=== PATIENT | female | born 1955 | race Caucasian/White ===

== ENCOUNTER 2024-11-03 11:07 | Outpatient (AMB) | payer OTHER, MEDICARE, SELFPAY ==
--- NOTE | 2024-11-03 11:38 | MHC.OFFVIS ---
Intake Visit Reasons: 6 month ADD Allergies No Known Allergies Allergy (Verified 09/23/24 12:36) Medication List - Last Reconciled 11/03/24 by Mikael Brush MD methylphenidate HCl 5 mg PO QAM 30 days HPI Comments Details: She is doing well in terms of focus and memory. Stress of her 43 yr son has been diagnosed with glioblastoma and had surgery and is on chemo and RT and has lost his vision on one side. He is using [employer] device which produces a TT Field. He is 4 yrs from surgery. Last scan is clear. Followed at [facility]. She says she has her brain back on Ritalin. Can concentrate and focus since starting Ritalin. 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 In July 2013, a garden pot fell from the ceiling when it's chain broke and hit her on her occipital region of the head and upper neck. She may have lost consciousness momentarily. She has no headache or neck pain. She is sleeping very well. Takes Ritalin 3 days a week. Occasionally loses her balance. 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 Doing pressure point therapy. MRI of the brain on 04/20/14 was normal. There are 2 tiny nonspecific white matter T2 and flair hyperintensities one in the right frontal and one in the left occipital region. [facility] Medical History (Updated 11/03/24 @ 11:41 by Mikael Brush MD) ADD (attention deficit disorder) Attention deficit Low back pain Post concussion syndrome Review of Systems Const Details: Sleep:? Difficulty getting to sleepdenies.? Difficulty maintaining sleepdenies?.? Urge to move legsdenies.? Teeth grindingdenies.? Shouting or Kicking during sleepdenies.? Abnormal behavior during sleepdenies.? Excessive sleepdenies.? Snoringdenies.? Daytime sleepinessdenies. ???General/Constitutional:? Change in appetitedenies.? Chillsdenies.? Fatiguedenies.? Feverdenies.? Weight gaindenies.? Weight lossdenies. ???Ophthalmologic:? Blurred visiondenies.? Diminished visual acuitydenies. ???ENT:? Stuffinessdenies.? Decreased hearingdenies.? Dry mouthdenies.? Ear paindenies.? Nosebleeddenies.? Ringing in the earsdenies.? Sinus paindenies.? Sore throatdenies.? Swollen glandsdenies. ???Endocrine:? Cold intolerancedenies.? Excessive thirstdenies.? Frequent urinationdenies.? Heat intolerancedenies. ???Respiratory:? Shortness of breathdenies.? Chest paindenies.? Coughdenies. ???Breast:? Breast lumpdenies.? Nipple dischargedenies. ???Cardiovascular:? Chest pain at restdenies.? Chest pain with exertiondenies.? Claudicationdenies.? Dizzinessdenies.? Fluid accumulation in the legsdenies.? Irregular heartbeatdenies.? Palpitationsdenies. ???Gastrointestinal:? Abdominal paindenies.? Constipationdenies.? Diarrheadenies.? Difficulty swallowingdenies.? Heartburndenies.? Nauseadenies.? Rectal bleedingdenies. ???Hematology:? Easy bruisingdenies.? Prolonged bleedingdenies. ???Genitourinary:? Frequent urinationdenies.? Urgencydenies.? Incontinencedenies.? Erectile Dysfunctiondenies. ???Musculoskeletal:? Neck paindenies.? Back painadmits.? Muscle achesdenies.? Painful jointsdenies.? Sciaticadenies.? Weaknessdenies. ???Podiatric:? Difficulty walkingdenies.? Foot numbnessdenies. ???Neurologic:? Difficulty swallowingdenies.? Balance difficultyadmits.? Coordinationnormal.? Difficulty speakingdenies.? Dizzinessdenies.? Faintingdenies.? Gait abnormalitydenies.? Headachedenies.? Loss of strengthdenies.? Loss of use of extremitydenies.? Low back painadmits.? Memory lossProblems with memory, confusion, focus and concentration problems..? Seizuresdenies.? Ticsdenies.? Tingling/Numbnessdenies.? Transient loss of visiondenies.? Tremordenies. ???Psychiatric:? Anxietydenies.? Auditory/visual hallucinationsdenies.? Delusionsdenies.? Depressed mooddenies.? Stressorsdenies.? Substance abusedenies.? Suicidal thoughtsdenies. Physical Exam Neuro Other: Neurological: Mental Status:??alert and oriented X 3,?Normal attention, orientation, memory and affect.?Cranial Nerves:??Pupils are equal, round and reactive to light. Fundoscopy shows normal disc bilaterally. External occular muscles are intact. Visual wyatt are full, no ptosis. Face is symmetrical, no facial weakness or droop. Facial sensations are normal. Tongue protrudes in midline. Palate elevates symmetrically. Shoulder shrugging is normal..?Motor Examination:??Normal muscle tone, bulk and strength,?No atrophy or fasciculations,?No drift of the extended upper extremities,?Deep tendon reflexes are 2+?,?Plantars are flexor?.?Straight Leg Raising:??90 degrees.?Sensory Exam:??Normal light touch, temperature, pinprick, vibration and joint-position sensations?,?Rhomberg sign is absent.?Coordination:??no ataxia,?no titubation,?[id number], [id number] test and rapid alternating movements were normal.?Gait Exam:??Within normal limits.?Cerebellar Signs:??[id number] and [id number] is normal,?no dysdiadochokinesia?.?Extrapyramidal System:??No tremor, rigidity with normal facial expressions,?No bradykinesia, no bradyphrenia. Normal arm swing and posture. No propulsion or retropulsion.?Speech:??Normal,?no dysphasia or dysarthria..? Mini Mental Status Exam: Level of Consciousness:??Alert.?Orientation:??Knows correct year, month, date, day and season,?Knows correct city, county and state. Knows correct location and floor.?Registration:??Able to register 3 objects.?Attention:??Serial 7's performed accurately.?Recall:??Able to recall 3 out of 3 objects.?Language:??Normal spontaneous speech, fluency, repetition,naming, comprehension, reading and writing.?Total Score:??.? Assessment & Plan Assessment & Plan (1) Attention deficit: Code(s): R41.840 - Attention and concentration deficit Category: Medical Plan Continue current meds Medications: Refilled methylphenidate HCl Partial Fill upon patient request. 5 mg PO QAM 30 tabs 0RF 30 days Coding Level of Care Code Est Pt Level 4 (58234) Diagnoses Attention deficit R41.84
--- OUTSIDE RECORDS SUMMARY | 2024-11-03 12:40 | XMS_ITS ---
Author Name [facility] Organization Unknown Care Team Organization Name Specialty Phone Email Start Date End Da te [facility] Anita [facility] 01/23/2022 4
--- OUTSIDE RECORDS SUMMARY | 2024-11-03 12:40 | XMS_ITS | Clinical Summary ---
Author Organization [address] Address [address] [facility] [place] [address] Phone Care Team Providers Care Rn Vascular Name Role Phone Anita Espinoza MD Primary Care Provider [phone] Allergies Active Allergy Reactions Criticality Noted Date Comments Adhesive Wound 10/09/2024 House Dust 04/20/2011 Sinus cheri- chronic Metronidazole Diarrhea,Headache,Na usea And Vomiting 02/06/2016 Medications turmeric root extract 500 mg capsule Take by mouth daily. Active omega-3 acid ethyl esters (LOVAZA) 1 gram capsule Take 2 Capsules by mouth daily. Active multivit-min/fol ic ac/collagen (WOMEN'S MULTIVITAMIN COLLAGEN ORAL) COLLAGEN OR Take by mouth. Active RED YEAST RICE EXTRACT ORAL RED YEAST RICE EXTRACT (RED YEAST RICE OR) Take by mouth. Active L. acidophilus/Bifi d. animalis (DAILY PROBIOTIC ORAL) Take by mouth. Activ e methylphenidate (RITALIN) 5 mg tablet Take 5 mg by mouth daily. Active calcium carbonate-vitami n D3 600 mg-5 mcg (200 unit) per tablet Take 1 Cap by mouth daily. Active bisacodyL (DULCOLAX) 5 mg EC tablet Take 2 tablets by mouth right before beginning bowel prep. See instructions provided by the office 2 tablet 5 Active polyethylene glycol (Golytely) 236-22.74-6.74 -5.86 gram solution Take 4L by mouth once for one dose. May substitue any PEG. Starting at 2PM the day before your procedure drink 1 8oz glasses at your own pace until you complete half of the gallon. Finish 2nd half of the gallon at 8PM. 4000 mL Active ascorbic acid/collagen hydr (COLLAGEN SKIN RENEWAL ORAL) Take by mouth. Activ e Active Problems Problem Noted Date Diagnosed Date Prediabetes 05/30/2024 Attention deficit disorder (ADD) 05/30/2024 Overview (05/30/2024): Dr. Brush Globus sensation 03/06/2024 Hiatal hernia 03/06/2024 Dysphagia 06/07/2021 Sliding hiatal hernia 06/07/2021 Allergic rhinitis 04/18/2020 Post concussive syndrome 08/24/2014 Overview (03/06/2024): Diagnosed by Dr. 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 02/18/2012 Fibroids 05/26/2011 Hypercholesteremia 05/26/2011 Osteopenia 05/26/2011 Overview (03/06/2024): 03/30 T score spine -1.8 hip -1.8 FRAX score 7.5% 10 year fracture risk 06/08 T score spine -2.2 hip -2.3 FRAX score 13% 10 year fracture risk Rosacea 05/26/2011 Tubular adenoma 05/26/2011 Overview (05/30/2024): 10/12/14: Diverticulosis, internal hemorrhoids; repeat in 10 years 03/2008: Tubular adenoma, repeat in 5 years Ptosis 04/20/2011 Overview (03/06/2024): Had eye surgery, chronic eye dryness 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 Papanicolaou smear complicating , antepartum Overview (05/30/2024): 05/26/11, 01/2006, 11/2004, 09/2004 Encounters Date Type Department Care Team Description 10/16/2024 12:12 PM EDT Anesthesia Event [facility] Endoscopy [address] [place] [id number] Ubaldo Chandler MD 10/16/2024 11:11 AM EDT - 10/16/2024 11:59 PM EDT Hospital Encounter [facility] Endoscopy [address] [place] [id number] Arti Martines DO Chang, Daniel J, MD Kapplan, Jacob A, CRNA Colon cancer screening Discharge Disposition: Home or Self Care from Last 3 Months Immunizations Name Administration Dates Next Due Hepatitis B (Vzydajm-P-Makjm , Recombivax HB-Adult) 19yo and older 01/03/2009 MMR, measles mumps and rubel la Live (Priorix; M-M-R II) 12mo and older 01/17/2009 Td Tetanus diptheria (Tdvax) 7yo and older 05/07 Tdap Tetanus diptheria acell ular pertussis (Boostrix; Adacel) 7yo and older 05/09/2017 Surgical History Surgery Date Site/Laterality Comments SHOULDER SURGERY Right shoulder repair COLONOSCOPY 2008 : tubular adenoma OTHER SURGICAL HISTORY molar COLONOSCOPY 2010 adenoma COLONOSCOPY 10/12/2014 tics and hemorrhoids; repeat in 10 yrs BREAST BIOPSY : ilya brst cyst aspir SCREENING MAMMOGRAM 07/03/2023 Bilateral Medical History Medical History Date Comments Ptosis 04/20/2011 Tubular adenoma 05/26/2011 Hypercholesteremia 05/26/2011 Osteopenia 05/26/2011 Fibroids 05/26/2011 Rosacea 05/26/2011 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 Papanicolaou smear complicating , antepartum 05/26/11, 01/2006, 11/2004, 09/2004 Family History Medical History Relation Name Comments Stroke Father 52 Other: old age Maternal Grandmother at age 95 Other: amyloidosis Mother 53, renal complications Breast cancer Sister 70 Brain cancer Son glioblastoma Colon cancer Neg Hx Ovarian cancer Neg Hx Relation Name Status Comments Father Maternal Grandfather Maternal Grandmother Mother Paternal Grandfather Paternal Grandmother Sister 70 Alive Son Alive Social History Tobacco Use Types Packs/Day Years Used Date Smoking Tobacco: Never Smokeless Tobacco: Never Tobacco Cessation:Counseling Given: Not Answered Alcohol Use Standard Drinks/Week Comments No 0 (1 standard drink = 0.6 oz pur e alcohol) Housing Instability Answer Date Recorde d Are you worried that in the next 2 months you may not have stable housing? No 06/08/2024 Food Access & Nutrition Answer Date Rec orded Do you have access to a vari ety of food including fruits and vegetables? Yes 06/08/2024 Access to Healthcare Answer Date Record ed Within the last 3 months, ho tash many times did you visit the emergency department for your medical care? 1 06/08/2024 Health Literacy Answer Date Recorded How often do you need to hav e someone help you when you read instructions, pamphlets, or other written material from your doctor or pharmacy? Never 06/08/2024 Caregiver: How often do you need to have someone help you when you read instructions, pamphlets, or other written material from your doctor or pharmacy? Not on file 06/08/2024 Financial Risk Answer Date Recorded How hard is it for you to pa y for the very basics like food, housing, medical care, and air conditioning / heating? Not very hard 06/08/2024 Transportation Answer Date Recorded Has the lack of transportati on kept you from meetings, work, or from getting things needed for daily living? No Has the lack of transportati on kept you from medical appointments or from getting medications? No 06/08/2024 Social Isolation Answer Date Recorded How often do you feel lonely or isolated from th ose around you? Never 06/08/2024 Food Risk Answer Date Recorded Within the past 12 months we worried whether our food would run out before we got money to buy more. Never true 06/08/2024 Within the past 12 months th e food we bought just didn't last and we didn't have money to get more. Never true 06/08/2024 Dependent Care Answer Date Recorded Do you need help finding or paying for care for your loved ones. For example, child and family counselor or elderly care for an older adult? No 06/08/2024 Education Answer Date Recorded Do you think completing more education or training, like finishing a GED, going to college, or learning a trade, would be helpful for you? No 06/08/2024 Employment and Income Answer Date Recor ded During the last four weeks, have you been actively looking for work? No 06/08/2024 Living Situation Answer Date Recorded What is your living situation? 0 06/08/2024 Interpersonal Safety Answer Date Record ed Physical Abuse 10/16/2024 Verbal Abuse 10/16/2024 Comments No Sex and Gender Information Value Date Recorded Sex Assigned at Female 05/03/2024 10:40 PM EST Legal Sex Female 5:32 PM EST Gender Identity Female 05/03/2024 10:40 PM EST Sexual Orientation Straight 10/16/2024 11 :09 AM EDT Obstetrics History Para Term AB IAB SAB Ectopic Multiple Livin g Live Births 2 2 2 2 Date Outcome GA Total Labor Labor/2nd/3rd Weight Sex Type Anes PTL Susan A1 A5 Name Clin Term Term Last Filed Vital Signs Vital Sign Reading Time Taken Comments Blood Pressure 122/60 10/16/2024 12:50 PM EDT Pulse 68 10/16/2024 12:50 PM EDT Temperature 36.1 C (97 F) 10/16/2024 12:30 PM EDT Respiratory Rate 14 10/16/2024 12:50 PM EDT Oxygen Saturation 98% 10/16/2024 12:50 PM EDT Inhaled Oxygen Concentration - - Weight 67.1 kg (148 lb) 10/16/2024 11:31 AM EDT Height 162.6 cm (5' 4 ) 10/16/2024 11:31 AM EDT Body Mass Index 25.4 10/16/2024 11:31 AM EDT Plan of Treatment Upcoming Encounters Date Type Department Care Team (Late st Contact Info) Description 12/14/2024 11:30 AM EDT Office Visit Adult Medicine [facility] [address] [place] [phone] Amanda Alvarez PA [address] [place] [address] 06/17/2025 9:00 AM EDT Office Visit Adult Medicine [facility] - [address] [phone] Anita Espinoza MD [address] [place] [address] 07/19/2025 1:10 PM EDT Appointment Radiology Department - [address] [phone] Health Maintenance Due Date Last Done Comments Pneumococcal Vaccine: 50+ Years (1 of 1 - PCV) 2004 Zoster Vaccines (1 of 2) 2004 Hepatitis B Vaccines (2 of 3 - 19+ 3-dose series) 01/31/2009 01/03/2009 Cervical Cancer Screening: HPV 03/22/2020 03/22/2015 COVID-19 Vaccine ( season) 2023 01/06/2021, 06/30/2020, 06/08/2020 Influenza Vaccine (#1) 2024 Social Influencers of Health Screening 06/08/2025 06/08/2024 Falls Risk Assessment 10/16/2025 10/16/2024 Breast Cancer Screening 07/14/2026 07/15/19, 07/03/2023, 07/03/2023, Additional history exists DTaP,Tdap,and Td Vaccines (3 - Td or Tdap) 05/09/2027 05/09/2017, 05/07/2007 Cholesterol Screening (Lipid Panel) 05/28/2029 05/28/2024, 02/25/2023 RSV Immunization Adult Patients (1 - 1-dose 75+ series) 2029 Colorectal Cancer Screening: Colonoscopy 10/16/2029 10/16/2024, 10/12/2014 Osteoporosis Screening (Bone Density Screening) 05/23/2033 05/24/2023, 12/05/2020 MMR Vaccines Aged Out 01/17/2009 No longer eligi ble based on patient's age to complete this topic Hepatitis C Screening Completed 10/12/2013 Depression Screening Completed 06/08/2024 HIB Vaccines Aged Out No longer eligi ble based on patient's age to complete this topic HPV Vaccines Aged Out No longer eligi ble based on patient's age to complete this topic Hepatitis A Vaccines Aged Out No long er eligible based on patient's age to complete this topic IPV Vaccines Aged Out No longer eligi ble based on patient's age to complete this topic Meningococcal ACWY Vaccine Aged Out N o longer eligible based on patient's age to complete this topic Meningococcal B Vaccine Aged Out No l onger eligible based on patient's age to complete this topic RSV Immunization Patients Under 20 months Aged Out No longer eligible based on patient's age to complete this topic Varicella Vaccines Aged Out No longer eligible based on patient's age to complete this topic Procedures Procedure Name Priority Date/Time Associated Diagnosis Comments COLONOSCOPY Routine 10/16/2024 12:29 PM EDT Colon cancer screening TISSUE EXAM Routine 10/16/2024 12:26 PM EDT Colon cancer screening MG MAMMO DIGITAL SCREENING W YOANDY BILAT Routine 07/14/2024 1:12 PM EDT Encounter for screening mammogram for breast cancer LIPID PANEL WITH REFLEX TO DIRECT LDL Routine 05/28/2024 10:52 AM EDT Hypercholesteremia DXA BONE DENSITY STUDY 1+ SITS AXIAL SKEL Routine 05/24/2023 11:00 AM EST Other specified disorders of bone density and structure, unspecified site HPV Routine 03/22/2015 HEPATITIS C SCREENING Routine 10/12/2013 from Last 3 Months or Most Recently Relevant to Health Maintenance Results * COLONOSCOPY Anesthesia - MAC; SP ENDOSCOPY (10/16/2024 12:29 PM EDT) Anatomical Region Laterality Modality Endoscopy 10/16/2024 12:1 0 PM EDT Impressions 10/16/2024 12:30 PM EDT - Hemorrhoids found on perianal exam. - One 6 mm polyp in the sigmoid colon, removed with a cold snare. Resected and retrieved. - The examination was otherwise normal on direct and retroflexion views. - Diverticulosis in the sigmoid colon. Recommendation: - Discharge patient to home. - High fiber diet. - Continue present medications. - Await pathology results. - Repeat colonoscopy for surveillance based on pathology results. Narrative 10/16/2024 12:30 PM EDT [facility] GI Patient Name: Malissa Irvin Procedure Date: 10/16/2024 12:10 PM Date of : 1955 Age: 69 Gender: Female Note Status: Finalized Attending MD: Arti Martines DO, [id number] Procedure Date No Time: 10/16/2024 Procedure: Colonoscopy Indications: High risk colon cancer surveillance: Personal history of colonic polyps Providers: Arti Martines DO Referring MD: Anita Espinoza MD Medicines: Monitored Anesthesia Care Complications: No immediate complications. Estimated blood loss: Minimal. Estimated Blood Loss: Estimated blood loss was minimal. Procedure: Pre-Anesthesia Assessment: - - Prior to the procedure, a History and Physical was performed, and patient medications and allergies were reviewed. The patient is competent. The risks and benefits of the procedure and the sedation options and risks were discussed with the patient. All questions were answered and informed consent was obtained. Patient identification and proposed procedure were verified by the physician, the nurse, the anesthesiologist, the data control clerk and the dentures lab technician in the pre-procedure area in the endoscopy suite. Mental Status Examination: alert and oriented. Airway Examination: normal oropharyngeal airway and neck mobility. Respiratory Examination: clear to auscultation. CV Examination: normal. Prophylactic Antibiotics: The patient does not require prophylactic antibiotics. Prior Anticoagulants: The patient has taken no anticoagulant or antiplatelet agents. ASA Grade Assessment: II - A patient with mild systemic disease. After reviewing the risks and benefits, the patient was deemed in satisfactory condition to undergo the procedure. The anesthesia plan was to use monitored anesthesia care (MAC). Immediately prior to administration of medications, the patient was re-assessed for adequacy to receive sedatives. The heart rate, respiratory rate, oxygen saturations, blood pressure, adequacy of pulmonary ventilation, and response to care were monitored throughout the procedure. The physical status of the patient was re-assessed after the procedure. After I obtained informed consent, the scope was passed under direct vision. Throughout the procedure, the patient's blood pressure, pulse, and oxygen saturations were monitored continuously. The Colonoscope was introduced through the anus and advanced to the cecum, identified by appendiceal orifice and ileocecal valve. The colonoscopy was performed without difficulty. The patient tolerated the procedure well. The quality of the bowel preparation was good. Findings: Hemorrhoids were found on perianal exam. A 6 mm polyp was found in the sigmoid colon. The polyp was sessile. The polyp was removed with a cold snare. Resection and retrieval were complete. Verification of patient identification for the specimen was done. Estimated blood loss was minimal. The exam was otherwise without abnormality on direct and retroflexion views. Multiple medium-mouthed diverticula were found in the sigmoid colon. Procedure Code(s): --- Professional --- 09445, Colonoscopy, flexible; with removal of tumor(s), polyp(s), or other lesion(s) by snare technique Diagnosis Code(s): --- Professional --- Z86.010, Personal history of colonic polyps K64.9, Unspecified hemorrhoids D12.5, Benign neoplasm of sigmoid colon K57.30, Diverticulosis of large intestine without perforation or abscess without bleeding CPT copyright 2021 [employer]. All rights reserved. The codes documented in this report are preliminary and upon inspector wreath review may be revised to meet current compliance requirements. ARTI Martines DO 10/16/2024 12:29:49 PM This report has been signed electronically.Arti Martines DO Number of Addenda: 0 Note Initiated On: 10/16/2024 12:10 PM Scope Withdrawal Time: 0 hours 7 minutes 44 seconds Scope In: 12:17:13 PM Scope Out: 12:27:45 PM Endoscopy Department at [facility] - [address] [place] [id number] Procedure Note Arti Martines DO - 10/16/2024 [facility] GI Patient Name: Malissa Irvin Procedure Date: 10/16/2024 12:10 PM Date of : 1955 Age: 69 Gender: Female Note Status: Finalized Attending MD: Arti Martines DO, [id number] Procedure Date No Time: 10/16/2024 Procedure: Colonoscopy Indications: High risk colon cancer surveillance: Personalhistory of colonic polyps Providers: Arti Martines DO Referring MD: Anita Espinoza MD Medicines: Monitored Anesthesia Care Complications: No immediate complications. Estimated blood loss: Minimal. Estimated Blood Loss: Estimated blood loss was minimal. Procedure: Pre-Anesthesia Assessment: - - Prior to the procedure, a History and Physicalwas performed, and patient medications and allergieswere reviewed. The patient is competent. The risks and benefits of the procedure and the sedation optionsand risks were discussed with the patient. Allquestions were answered and informed consent was obtained. Patient identification and proposed procedure were verified by the physician, the nurse, the anesthesiologist, the data control clerk and thetechnician in the pre-procedure area in the endoscopy suite. Mental Status Examination: alert and oriented.Airway Examination: normal oropharyngeal airway and neck mobility. Respiratory Examination: clear to auscultation. CV Examination: normal. Prophylactic Antibiotics: The patient does not requireprophylactic antibiotics. Prior Anticoagulants: The patient has taken no anticoagulant or antiplatelet agents. ASA Grade Assessment: II - A patient with mild systemic disease. After reviewing the risks and benefits,the patient was deemed in satisfactory condition to undergo the procedure. The anesthesia plan was touse monitored anesthesia care (MAC). Immediately priorto administration of medications, the patient was re-assessed for adequacy to receive sedatives. The heart rate, respiratory rate, oxygen saturations, blood pressure, adequacy of pulmonary ventilation,and response to care were monitored throughout the procedure. The physical status of the patient was re-assessed after the procedure. After I obtained informed consent, the scope was passed under direct vision. Throughout theprocedure, the patient's blood pressure, pulse, and oxygen saturations were monitored continuously. The Colonoscope was introduced through the anus and advanced to the cecum, identified by appendiceal orifice and ileocecal valve. The colonoscopy was performed without difficulty. The patient tolerated the procedure well. The quality of the bowel preparation was good. Findings: Hemorrhoids were found on perianal exam. A 6 mm polyp was found in the sigmoid colon. Thepolyp was sessile. The polyp was removed with a coldsnare. Resection and retrieval were complete. Verificationof patient identification for the specimen was done. Estimated blood loss was minimal. The exam was otherwise without abnormality ondirect and retroflexion views. Multiple medium-mouthed diverticula were found inthe sigmoid colon. Procedure Code(s): --- Professional --- 22096, Colonoscopy, flexible; with removal of tumor(s), polyp(s), or other lesion(s) by snare technique Diagnosis Code(s): --- Professional --- Z86.010, Personal history of colonic polyps K64.9, Unspecified hemorrhoids D12.5, Benign neoplasm of sigmoid colon K57.30, Diverticulosis of large intestine without perforation or abscess without bleeding CPT copyright 2020 [employer]. All rights reserved. The codes documented in this report are preliminary and upon inspector wreath reviewmay be revised to meet current compliance requirements. ARTI Martines DO 10/16/2024 12:29:49 PM This report has been signed electronically.Arti Martines DO Number of Addenda: 0 Note Initiated On: 10/16/2024 12:10 PM Scope Withdrawal Time: 0 hours 7 minutes 44 seconds Scope In: 12:17:13 PM Scope Out: 12:27:45 PM Endoscopy Department at [facility] - [address] [place] [phone] IMPRESSION: - Hemorrhoids found on perianal exam. - One 6 mm polyp in the sigmoid colon, removed witha cold snare. Resected and retrieved. - The examination was otherwise normal on directand retroflexion views. - Diverticulosis in the sigmoid colon. Recommendation: - Discharge patient to home. - High fiber diet. - Continue present medications. - Await pathology results. - Repeat colonoscopy for surveillance based on pathology results. Arti Martines DO GI~PROCEDURE ORDERABLES Final Re sult * Tissue exam (10/16/2024 12:26 PM EDT) Final Diagnosis Sigmoid Colon, Polyp: Benign fragment of colonic mucosa with lymphoid aggregate. No dysplasia or neoplasia identified. 10/19/2024 10:38 AM EDT [facility] Gross Description A. Large Intestine, Sigmoid Colon, Polyp x1: Labeled polyp x 1 Sig colon . Received in formalin is a soft, frank-pink, flat to polypoid, 0.55 cm in greatest diameter tissue with minimal attached fecal/food debris, which is inked black at the base, wrapped in paper and submitted in toto in one cassette, one piece, multiple levels. TS 10/19/2024 10:38 AM EDT [facility] Disclaimer Unless otherwise specified, all tissue is 10% NB formalin fixed and paraffin embedded. 10/19/2024 10:38 AM EDT [facility] Tissue Sigmoid colon structure / Unknown 10/16/2024 12:26 PM EDT 10/16/2024 4:06 PM EDT us Arti Martines DO LAB PATHOLOGY ORDERABLES Final R esult [facility] [address] [place] [address], * MG Mammo Digital Screening w Yoandy bilat (07/14/2024 1:12 PM EDT) Anatomical Region Laterality Modality Breast Bilateral Mammography 07/15/2024 8:01 AM EDT Impressions 07/15/2024 8:04 AM EDT No mammographic evidence of malignancy. BREAST DENSITY: C - The breasts are heterogeneously dense which may obscure small masses. BI-RADS CATEGORY: 1 - NEGATIVE RECOMMENDATION: Screening bilateral mammogram is recommended in 1 year. MAMMO LOCATION: [facility], [address] [place] [address], [id number], . -------- FINAL REPORT -------- Dictated By: Denae Mcintyre Dictated Date: 07/15/2024 08:01 ET Assigned Physician: Denae Mcintyre Reviewed and Electronically Signed By: Denae Mcintyre Signed Date: 07/15/2024 08:04 ET Workstation ID: [id number] Transcribed By: Self Edit Transcribed Date: 07/15/2024 08:01 ET Narrative 07/15/2024 8:04 AM EDT EXAM: Screening Mammogram CLINICAL: 68 years old, Female, routine annual exam. History of a benign left core biopsy 02/27/2016. COMPARISON: 07/03/2023 and as far back as 06/15/2021 TECHNIQUE: Bilateral MLO and CC views were obtained digitally with 3-D mammogram (digital breast tomosynthesis). Computer-aided detection was utilized in evaluation of this exam (CAD). FINDINGS: No new suspicious mass, architectural distortion, or suspicious calcifications. Biopsy clip again noted in the upper outer left breast. Procedure Note Denae Mcintyre MD - 07/15/2024 EXAM: Screening Mammogram CLINICAL: 68 years old, Female, routine annual exam. History of a benignleft core biopsy 02/27/2016. COMPARISON: 07/03/2023 and as far back as 06/15/2021 TECHNIQUE: Bilateral MLO and CC views were obtained digitally with 3-Dmammogram (digital breast tomosynthesis). Computer-aided detection wasutilized in evaluation of this exam (CAD). FINDINGS: No new suspicious mass, architectural distortion, or suspiciouscalcifications. Biopsy clip again noted in the upper outer left breast. IMPRESSION: No mammographic evidence of malignancy. BREAST DENSITY: C - The breasts are heterogeneously dense which mayobscure small masses. BI-RADS CATEGORY: 1 - NEGATIVE RECOMMENDATION: Screening bilateral mammogram is recommended in 1 year. MAMMO LOCATION: [facility], [address] [place] [address], [facility] [place] [facility] [place], . -------- FINAL REPORT -------- Dictated By: Denae Mcintyre Dictated Date: 07/15/2024 08:01 ET Assigned Physician: Denae Mcintyre Reviewed and Electronically Signed By: Denae Mcintyre Signed Date: 07/15/2024 08:04 ET Workstation ID: [id number] Transcribed By: Self Edit Transcribed Date: 07/15/2024 08:01 ET us Anita Espinoza MD IMG BI PROCEDURES Final Result * (ABNORMAL) Lipid panel with reflex to direct LDL (05/28/2024 10:52 AM EDT) Cholesterol 255(H) 0 - 200 mg/dL LAB CHEMISTRY METHOD 05/28/2024 3:03 PM EDT [facility] Triglycerides 125 0 - 150 mg/dL LAB CHEMISTRY METHOD 05/28/2024 3:03 PM EDT [facility] HDL 56 >=40 mg/dL LAB CHEMISTRY METHOD 05/28/2024 3:03 PM EDT [facility] LDL Calculated 174(H) 0 - 100 mg/dL LAB CHEMISTRY METHOD 05/28/2024 3:03 PM EDT [facility] VLDL Cholesterol Conrad 25 mg/dL LAB CHEMISTRY METHOD 05/28/2024 3:03 PM EDT [facility] Non HDL Chol. (LDL+VLDL) 199(H) <145 mg/dL LAB CHEMISTRY METHOD 05/28/2024 3:03 PM EDT [facility] Chol/HDL Ratio 4.6(H) 0.0 - 4.4 LAB CHEMISTRY METHOD 05/28/2024 3:03 PM EDT [facility] Blood Venous blood specimen / Unknown Venipuncture / Unknown 05/28/2024 10:52 AM EDT 05/28/2024 10:52 AM EDT us Shwetha KELLY LAB BLOOD ORDERABLES Final Re sult [facility] [address] [place] [address], * DXA BONE DENSITY STUDY 1+ SITS AXIAL SKEL (05/24/2023 11:00 AM EST) Anatomical Region Laterality Modality Bone Densitometr y 02/25/2023 9:50 AM EST Narrative 05/24/2023 4:50 PM EST BONE DENSITY SCAN (DEXA): FINDINGS: Lumbar Spine T-score is -2.2. (SD relative to 20-29 y/o adult) Z-score is -0.1. (SD relative to age matched peers) This is considered osteopenia by WHO criteria. Left Hip T-score is -2.3. Z-score is -0.5. This is considered osteopenia by WHO criteria. Comparison exam(s): 12/05/2020. No statistically significant change in bone mineral density. Lateral survey view of the thoracolumbar spine shows no significant compression deformities. IMPRESSION: IMPRESSION: Osteopenia by WHO criteria. This patient has a 13% risk of major osteoporotic fracture and a 2.6% risk of hip fracture over the next 10 years. (World Health Organization Fracture Risk Assessment) The [facility] Department of Internal Medicine recommends using National Osteoporosis Foundation (NOF) guidelines in treatment decisions related to osteoporosis. NOF guidelines suggest considering treatment for postmenopausal women and men aged 50 or older presenting with the following: History of hip or vertebral fracture. T-score = -2.5 (DXA) at the femoral neck, total hip, or spine, after appropriate evaluation to exclude secondary causes. Low bone mass (T-score between -1.0 and -2.5 at the femoral neck or spine) AND a 10-year probability of a hip fracture = 3% OR a 10-year probability of a major osteoporosis-related fracture = 20% based on the [place]-adapted WHO algorithm Please note that all treatment decisions require clinical judgment and consideration of individual patient factors, including patient preferences, co-morbidities, previous drug use, risk factors not captured in the FRAX model (e.g., frailty, falls, vitamin D deficiency, increased bone turnover, interval significant decline in bone density) and possible under- or over-estimation of fracture risk by FRAX. Optional alternative screening schedule based on camila Freitas., [facility] April 05, 2011 for patients with osteopenia (based on hip BMD T-score) is as follows: * advanced osteopenia (T scores -2.00 to -2.49), BMD testing every year * moderate osteopenia (T scores -1.50 to -1.99), BMD testing every 5 years mild osteopenia or normal BMD (T scores -1.50 and higher), BMD testing every 15 years Procedure Note Denae Mcintyre MD - 11/04/2023 BONE DENSITY SCAN (DEXA): FINDINGS: Lumbar Spine T-score is -2.2. (SD relative to 20-29 y/o adult) Z-score is -0.1. (SD relative to age matched peers) This is considered osteopenia by WHO criteria. Left Hip T-score is -2.3. Z-score is -0.5. This is considered osteopenia by WHO criteria. Comparison exam(s): 12/05/2020. No statistically significant change inbone mineral density. Lateral survey view of the thoracolumbar spine shows no significantcompression deformities. IMPRESSION: IMPRESSION: Osteopenia by WHO criteria. This patient has a 13% risk of majorosteoporotic fracture and a 2.6% risk of hip fracture over the next 10 years. (World HealthOrganization Fracture Risk Assessment) [facility] Department of Internal Medicine recommendsusing National Osteoporosis Foundation (NOF) guidelines in treatment decisions related toosteoporosis. NOF guidelines suggest considering treatment for postmenopausal women and menaged 50 or older presenting with the following: History of hip or vertebral fracture. T-score = -2.5 (DXA) at the femoral neck, total hip, or spine, afterappropriate evaluation to exclude secondary causes. Low bone mass (T-score between -1.0 and -2.5 at the femoral neck or spine)AND a 10-year probability of a hip fracture = 3% OR a 10-year probability of a majorosteoporosis-related fracture = 20% based on the [place]-adapted WHO algorithm Please note that all treatment decisions require clinical judgment andconsideration of individual patient factors, including patient preferences, co- morbidities,previous drug use, risk factors not captured in the FRAX model (e.g., frailty, falls, vitaminD deficiency, increased bone turnover, interval significant decline in bone density) andpossible under- or over-estimation of fracture risk by FRAX. Optional alternative screening schedule based on camila Freitas., NEJMJanuary 2011 for patients with osteopenia (based on hip BMD T-score) is as follows: * advanced osteopenia (T scores -2.00 to -2.49), BMD testing every year * moderate osteopenia (T scores -1.50 to -1.99), BMD testing every 5years mild osteopenia or normal BMD (T scores -1.50 and higher), BMD testingevery 15 years Anita Espinoza MD IMG DXA PROCEDURES Final Result * Cervical Cancer Screening: HPV (03/22/2015) Pathologist [facility] Cervical Cancer Screening: HPV abstracted, negative Historical Provider HEALTH MAINTENANCE Final Result * Hepatitis C Screening (10/12/2013) Pathologist [facility] Hepatitis C Screening abstracted Historical Provider HEALTH MAINTENANCE Final Result from Last 3 Months or Most Recently Relevant to Health Maintenance Insurance [facility] [employer] Care Teams Rn Vascular Relationship Specialty Start Date End Date Anita Espinoza MD [address] [place] [id number] PCP - General Internal Medicine 01/18/11
--- OUTSIDE RECORDS SUMMARY | 2024-11-03 12:40 | XMS_ITS | Patient Health Record ---
Author Organization [facility] Address [address] [place] [id number] Care Team Providers Care Apprentice Stylist Name Role Phone Vel Cardoso Unavailable [phone] Reason For Referral No Information Plan Of Treatment No Information
== END 2024-11-03 11:48 | disposition home or self-care (01) ==
LOC: HO.HSM 11:07
PROVIDERS: PCP Internal Medicine; Referring Provider Internal Medicine; Visit Provider Psychiatry & Neurology Neurology
DX: R41.840 Attention and concentration deficit (principal)
CPT/HCPCS: 99214